=== PATIENT | female | born 1995 ===

== ENCOUNTER 2023-11-13 19:49 | Inpatient (IN) | payer BC ==
[2023-11-13] MEDS ORDERED: Misoprostol 200 MCG Tab PO PRN (20:19)
[2023-11-13] MEDS ORDERED: Water For Irrigation,Sterile 1,000 ML Container IRR PRN (20:19)
[2023-11-13] MEDS ORDERED: Terbutaline 1 MG/ML SDV SUBCUT PRN (20:19)
[2023-11-13] MEDS ORDERED: Tranexamic Acid IN NACL,ISO-OS 1,000 MG in Premix Bag 1 BAG IV PRN (20:19)
[2023-11-13] MEDS ORDERED: Lidocaine 1% 50 ML MDV INJECT PRN (20:19)
[2023-11-13] MEDS ORDERED: Methylergonovine 0.2 MG/1 ML Amp IM PRN (20:19)
[2023-11-13] MEDS ORDERED: Carboprost Tromethamine 250 MCG/1 mL Vial IM PRN (20:19)
[2023-11-13] MEDS ORDERED: Sodium Chloride 0.9% 10 ML Syringe FLUSH PRN (20:24)
[2023-11-13] MEDS ORDERED: Sodium Chloride 0.9% 20 ML SDV IV PRN (20:24)
[2023-11-13] MEDS ORDERED: Sodium Chloride 0.9% 2.5 ML Syringe FLUSH PRN (20:24)
[2023-11-13] MEDS ORDERED: Misoprostol 50 MCG (1/2 of 100 MCG) Tab VAG PRN (20:24)
[2023-11-13] MEDS ORDERED: Nalbuphine 10 MG/1 ML Vial IVPUSH PRN (20:24)
[2023-11-13] MEDS ORDERED: Oxytocin/0.9 % Sodium Chloride 30 UNIT/500 ML BAG IV SCH (20:30)
[2023-11-13 21:22] LABS: HEMATOCRIT 40.8 % (37.0-47.0); HEMOGLOBIN 14.1 g/dL (12.0-16.0); MEAN CORPUSCULAR HEMOGLOBIN 31.6 pg (28.0-32.0); MEAN CORPUSCULAR HGB CONC 34.6 g/dL (32.0-36.0); MEAN CORPUSCULAR VOLUME 91.5 fL (83.0-99.0); MEAN PLATELET VOLUME 13.4 fL (9.4-12.3); PLATELET COUNT,PLT 113 K/uL (150-400); RED BLOOD CELL COUNT 4.46 M/uL (4.10-5.30); WHITE BLOOD CELL COUNT,WBC 10.88 K/uL (3.9-11.3)
[2023-11-13 21:46] LABS: CARBON DIOXIDE,CO2 19.2 mmol/L (21.0-32.0); CREATININE 1.4 mg/dL (0.6-1.0); EST CRCL DRUG DOSING (CG) 57.66 mL/min
[2023-11-13] MEDS: Misoprostol 25 MCG (1/4 of 100 MCG) Tab VAG PRN (21:50)
[2023-11-14] MEDS: Oxytocin/0.9 % Sodium Chloride 30 UNIT/500 ML BAG IV SCH (06:17)
[2023-11-14] MEDS: Lactated Ringers 1,000 ML IV SCH (06:17)
[2023-11-14] MEDS ORDERED: Phenylephrine HCl In 0.9% NaCl 1 MG/10 ML Syringe ONE (08:56)
[2023-11-14] MEDS ORDERED: Bupivacaine 0.5% 10 ML SDV ONE (08:56)
[2023-11-14] MEDS: Ropivacaine HCl/PF 200 ML ONE (09:15)
[2023-11-14] MEDS ORDERED: Phenylephrine HCl In 0.9% NaCl 1 MG/10 ML Syringe IVPUSH PRN (09:22)
[2023-11-14] MEDS ORDERED: ePHEDrine 50 MG/ML SDV IVPUSH PRN ×2 (09:22)
[2023-11-14] MEDS ORDERED: Bupivacaine 0.5% 10 ML SDV INJECT ONE (09:23)
[2023-11-14] MEDS ORDERED: ePHEDrine 50 MG/ML SDV IM PRN (09:23)
[2023-11-14] MEDS ORDERED: dexmedeTOMIDine HCl 200 MCG/2 ML SDV EPIDUR SCH (09:30)
[2023-11-14] MEDS: Ondansetron 4 MG/2 ML SDV IVPUSH PRN (20:23)
[2023-11-14] MEDS: Ropivacaine HCl/PF 400 MG in Premix Bag 1 BAG EPIDUR SCH (23:31)
[2023-11-15] MEDS: Calcium Carbonate 500 MG Tab.Chew PO ONE (05:51)
[2023-11-15] MEDS ORDERED: Oxytocin 10 Units/1 ML SDV IM PRN (11:53)
[2023-11-15] MEDS ORDERED: Bisacodyl 10 MG Supp RECTAL PRN (11:53)
[2023-11-15] MEDS ORDERED: Methylergonovine 0.2 MG/1 ML Amp IM PRN (11:53)
[2023-11-15] MEDS ORDERED: Lanolin 100% Cream 7 GM Tube TOP PRN (11:53)
[2023-11-15] MEDS ORDERED: diphenhydrAMINE 50 MG/ML SDV IVPUSH PRN ×2 (11:53→12:16)
[2023-11-15] MEDS ORDERED: Acetaminophen/oxyCODONE 325-5 MG Tab PO PRN ×3 (11:53→12:16)
[2023-11-15] MEDS ORDERED: Ondansetron 4 MG/2 ML SDV IVPUSH PRN ×3 (11:53→12:16)
[2023-11-15] MEDS ORDERED: Lactated Ringers 1,000 ML IV SCH (12:00)
[2023-11-15] MEDS ORDERED: Misoprostol 200 MCG Tab ONE (12:00)
[2023-11-15] MEDS ORDERED: HYDROmorphone 1 MG/ML Syringe IVPUSH PRN (12:16)
[2023-11-15] MEDS ORDERED: fentaNYL 100 MCG/2 ML SDV IVPUSH PRN (12:16)
[2023-11-15] MEDS ORDERED: Metoclopramide 10 MG/2 ML SDV IVPUSH PRN (12:16)
[2023-11-15] MEDS ORDERED: Albuterol 0.083% 2.5 MG/3 ML Neb Soln NEB PRN (12:16)
[2023-11-15] MEDS ORDERED: Nalbuphine 10 MG/1 ML Vial IVPUSH PRN (12:16)
[2023-11-15] MEDS ORDERED: Naloxone 0.4 MG/ML SDV IVPUSH PRN (12:16)
[2023-11-15] MEDS ORDERED: fentaNYL 50 MCG/ML SDV IVPUSH PRN (12:16)
[2023-11-15] MEDS ORDERED: droPERidol 5 MG/2 ML SDV IVPUSH PRN (12:16)
[2023-11-15] MEDS ORDERED: Morphine 2 MG/ML SYRINGE IVPUSH PRN (12:16)
[2023-11-15] MEDS: Ketorolac 30 MG/ML SDV IVPUSH SCH (14:14)
[2023-11-15 16:18] LABS: HEMOGLOBIN 10.8 g/dL (12.0-16.0)
[2023-11-15] MEDS: Acetaminophen 1,000 MG in Premix Bag 1 BAG IV SCH (17:46)
[2023-11-16 05:42] LABS: HEMATOCRIT 25.6 % (37.0-47.0); HEMOGLOBIN 8.8 g/dL (12.0-16.0); MEAN CORPUSCULAR HEMOGLOBIN 31.8 pg (28.0-32.0); MEAN CORPUSCULAR HGB CONC 34.4 g/dL (32.0-36.0); MEAN CORPUSCULAR VOLUME 92.4 fL (83.0-99.0); MEAN PLATELET VOLUME 13.3 fL (9.4-12.3); PLATELET COUNT,PLT 94 K/uL (150-400); RED BLOOD CELL COUNT 2.77 M/uL (4.10-5.30); WHITE BLOOD CELL COUNT,WBC 15.57 K/uL (3.9-11.3)
[2023-11-16 05:59] LABS: BAND ABSOLUTE MAN 0.31; BAND PERCENT MAN 2 %; EOSINOPHILS ABSOLUTE MAN 0.31 K/uL (0.00-0.45); EOSINOPHILS PERCENT MAN 2 % (0-6); LYMPHOCYTES ABSOLUTE MAN 2.49 K/uL (1.00-4.80); LYMPHOCYTES PERCENT MAN 16 % (24-44); MONOCYTES ABSOLUTE MAN 0.31 K/uL (0.00-0.80); MONOCYTES PERCENT MAN 2 % (0-8); SEG NEUTROPHILS ABSOLUTE MAN 12.14 K/uL (1.80-7.70); SEG NEUTROPHILS PERCENT MAN 78 % (41-71)
[2023-11-16] MEDS: Docusate Sodium 100 MG Cap PO SCH (09:51)
[2023-11-16] MEDS ORDERED: Benzocaine/Menthol 20%-0.5% Spray 78 GM Cannister TOP PRN (14:18)
[2023-11-16] MEDS ORDERED: Witch Hazel Medicated Pads 40/Jar TOP PRN (14:25)
[2023-11-16] MEDS: Promethazine 25 MG/ML SDV ONE (16:13)
[2023-11-16] MEDS ORDERED: Simethicone 80 MG Tab.Chew PO SCH (17:00)
[2023-11-16] MEDS: Simethicone 80 MG Tab.Chew PO PRN (17:15)
[2023-11-16] MEDS: Ibuprofen 800 MG Tab PO PRN (22:05)
[2023-11-17] MEDS: Sodium Ferric Gluconate Cmplex 125 MG in Sodium Chloride 0.9% 100 ML IV SCH (09:09)
[2023-11-17] MEDS ORDERED: Acetaminophen 325 MG Tab PO PRN (20:21)
[2023-11-18 04:07] LABS: HEMOGLOBIN 8.4 g/dL (12.0-16.0); MEAN CORPUSCULAR HEMOGLOBIN 31.3 pg (28.0-32.0); MEAN CORPUSCULAR HGB CONC 33.6 g/dL (32.0-36.0); MEAN CORPUSCULAR VOLUME 93.3 fL (83.0-99.0); MEAN PLATELET VOLUME 11.8 fL (9.4-12.3); PLATELET COUNT,PLT 156 K/uL (150-400); RED BLOOD CELL COUNT 2.68 M/uL (4.10-5.30); WHITE BLOOD CELL COUNT,WBC 14.38 K/uL (3.9-11.3)
[2023-11-18] MEDS: Sodium Ferric Gluconate Cmplex 125 MG in Sodium Chloride 0.9% 100 ML IV SCH (07:42)
[2023-11-18] MEDS: Ferrous Sulfate 325 MG Tab PO SCH (14:31)
[2023-11-18] MEDS ORDERED: Tranexamic Acid 1,000 MG/10 ML Vial IV ONE (17:43)
[2023-11-18] MEDS ORDERED: Azithromycin 500 MG Vial IV ONE (17:43)
[2023-11-18] MEDS ORDERED: Morphine PF 10 MG/10 ML SDV IV ONE (17:43)
[2023-11-18] MEDS ORDERED: Lidocaine 2% 5 ML SDV IV ONE (17:43)
[2023-11-18] MEDS ORDERED: Ketorolac 30 MG/ML SDV IVPUSH ONE (17:43)
[2023-11-18] MEDS ORDERED: Ropivacaine 0.5% 5 MG/ML 30 ML SDV EPIDUR ONE (17:43)
[2023-11-18] MEDS ORDERED: Ondansetron 4 MG/2 ML SDV IVPUSH ONE (17:43)
[2023-11-18] MEDS ORDERED: Phenylephrine HCl In 0.9% NaCl 1 MG/10 ML Syringe IV ONE (17:43)
[2023-11-18] MEDS ORDERED: Oxytocin 10 Units/1 ML SDV IV ONE (17:43)
[2023-11-18] MEDS ORDERED: EPINEPHrine 1 MG/1 ML Amp IV ONE (17:43)
[2023-11-18] MEDS ORDERED: Bupivacaine 0.25% 30 ML SDV EPIDUR ONE (17:43)
[2023-11-18] MEDS ORDERED: fentaNYL 100 MCG/2 ML SDV IV ONE (17:43)
[2023-11-18] MEDS ORDERED: Midazolam 1 MG/ML 2 ML SDV IV ONE (17:43)
[2023-11-18] MEDS ORDERED: Bupivacaine 0.25% 10 ML SDV EPIDUR ONE (17:43)
[2023-11-18] MEDS ORDERED: ceFAZolin 1 GM Vial IV ONE (17:43)
== END 2023-11-18 17:44 | disposition home or self-care (01) | DRG 540 ==
LOC: MW.OB 19:49 → OBSVTOIN 11-15 11:53 → MW.OB 11-15 20:03
PROVIDERS: ADMIT Obstetrics & Gynecology; ATTEND Obstetrics & Gynecology
PROC: 3E033VJ Introduction of Other Hormone into Peripheral Vein, Percutaneous Approach (ICD-10-PCS; 2023-11-15)
PROC: 10907ZC Drainage of Amniotic Fluid, Therapeutic from Products of Conception, Via Natural or Artificial Opening (ICD-10-PCS; 2023-11-15)
PROC: 3E0R3BZ Introduction of Anesthetic Agent into Spinal Canal, Percutaneous Approach (ICD-10-PCS; 2023-11-15)
PROC: 00HU33Z Insertion of Infusion Device into Spinal Canal, Percutaneous Approach (ICD-10-PCS; 2023-11-15)
PROC: 10D00Z1 Extraction of Products of Conception, Low, Open Approach (ICD-10-PCS; principal; 2023-11-15 11:00)
DX: O24.420 Gestational diabetes mellitus in childbirth, diet controlled (principal); O72.1 Other immediate postpartum hemorrhage; D62 Acute posthemorrhagic anemia; Z37.0 Single live birth; O75.81 Maternal exhaustion complicating labor and delivery; O43.893 Other placental disorders, third trimester; O66.5 Attempted application of vacuum extractor and forceps; O77.0 Labor and delivery complicated by meconium in amniotic fluid; Z91.040 Latex allergy status; O62.1 Secondary uterine inertia; Z88.0 Allergy status to penicillin; Z3A.39 39 weeks gestation of pregnancy
CPT/HCPCS: 01967; 01968; 36415; 51702; 59025; 59514; 64488; 80048; 85014; 85018; 85025; 85027; 86592; 86850; 86900; 86901; A9270-GY; J0131; J0171; J0456; J0665; J0690; J1885; J2250; J2274; J2371; J2405; J2590; J2795; J2916; J3010; J3490; J7120